=== PATIENT | female | born 1995 | race Caucasian/White ===

== ENCOUNTER 2019-02-27 11:36 | Emergency (ER) | payer MEDICARE, MEDICAID ==
[~2019-02-27] VITALS: Ht 167.6 cm; Wt 87.0 kg
[~2019-02-27 11:36] MED LIST: DEPAKOTE; KEPP500; KLONAPIN; OLAN10TA3; OLAN5TAB3; TOPA200; [UNRECOGNIZED DRUG - OTHER]
[2019-02-27 12:59] LABS: BASOPHILS % 0.7 % (0.0-2.0); EOSINOPHILS % 2.7 % (0.0-5.0); HEMATOCRIT. 39.8 % (36.0-48.0); HEMOGLOBIN. 13.1 g/dL (12.0-16.0); LYMPHOCYTES % 21.6 % (20.0-50.0); MEAN CORPUSCULAR HEMOGLOBIN 29.2 pg (28.0-32.0); MEAN CORPUSCULAR VOLUME 88.9 fL (81.0-99.0); MEAN PLATELET VOLUME 7.8 fl (7.4-10.4); PLATELET 256 x1000/uL (130-400); RED BLOOD CELL COUNT 4.48 mill/uL (4.2-5.4); RED CELL DISTRIBUTION WIDTH 12.9 % (11.6-14.6)
[2019-02-27] MEDS ORDERED: LEVETIRACETAM 500MG/5ML CUP PO ONE (13:00)
[2019-02-27 13:07] LABS: CHLORIDE 110 mEq/L (98-107)
[2019-02-27 16:03] LABS: HCG SCREEN NEGATIVE
[2019-02-27 16:15] VITALS: BP 140/68
== END 2019-02-27 16:30 | disposition home or self-care (01) ==
LOC: ER 12:14
DX: S01.01XA Laceration without foreign body of scalp, initial encounter (principal); R56.9 Unspecified convulsions; Z79.899 Other long term (current) drug therapy; W18.39XA Other fall on same level, initial encounter; Y93.89 Activity, other specified; Y92.210 Daycare center as the place of occurrence of the external cause; Y99.8 Other external cause status
CPT/HCPCS: 12002; 36415; 81025; 84703; 99284

== ENCOUNTER 2021-09-11 11:09 | Emergency (ER) | payer MEDICARE, MEDICAID ==
[~2021-09-11] VITALS: Ht 170.2 cm; Wt 86.0 kg
[2021-09-11 14:00] VITALS: BP 110/68
[2021-09-11] MEDS ORDERED: ACETAMINOPHEN 500MG TABLET PO ONE (14:30)
[2021-09-11] MEDS ORDERED: ACET-2708 MT (15:39)
== END 2021-09-11 16:00 | disposition home or self-care (01) ==
LOC: ER 11:09
DX: S80.11XA Contusion of right lower leg, initial encounter (principal); G40.909 Epilepsy, unspecified, not intractable, without status epilepticus; F79 Unspecified intellectual disabilities; F80.1 Expressive language disorder; W01.0XXA Fall on same level from slipping, tripping and stumbling without subsequent striking against object, initial encounter; Y93.89 Activity, other specified; Y92.018 Other place in single-family (private) house as the place of occurrence of the external cause
CPT/HCPCS: 73502; 73560; 73610; 73630; 99284